=== PATIENT | male | born 1995 | race Caucasian/White ===

== ENCOUNTER 2017-06-09 21:53 | Emergency (ER) | payer MEDICAID ==
--- NOTE | 2017-06-09 22:28 | ED Physician Documentation ---
PD HPI LOWER EXT INJURY - Stated complaint Stated Complaint: R LEG PAIN, R ANKLE INJURY - Chief complaint Chief Complaint: Trauma Ext - History obtained from History obtained from: Patient, Family - History of Present Illness PD HPI LOW EXT INJURY LOCATION: Right, Knee Type of injury: Fall, Twist Where injury occurred: Work Timing - onset: Today Worsened by: Moving, Palpating Associated symptoms: Swelling. No: Weakness Similar symptoms before: Has not had sx before Recently seen: Not recently seen - Additional information Additional information: Patient is a 21 year old male with no significant past medical history who is presenting to the emergency department for ankle pain. patient states that he was walking today when he stepped wrong and twisted his ankle. Patient states that he also has had knee pain for the last couple of weeks and he hit it again today. Review of Systems Constitutional: denies: Fever, Chills Eyes: reports: Reviewed and negative Ears: reports: Reviewed and negative Nose: reports: Reviewed and negative Throat: reports: Reviewed and negative Cardiac: reports: Reviewed and negative Respiratory: reports: Reviewed and negative GI: reports: Reviewed and negative : reports: Reviewed and negative Skin: denies: Lesions, Abrasion (s) Musculoskeletal: reports: Extremity pain, Joint pain, Extremity swelling, Joint swelling Neurologic: denies: Generalized weakness, Focal weakness Immunocompromised: denies: Immunocompromised PD PAST MEDICAL HISTORY - Past Medical History Past Medical History: No - Past Surgical History Past Surgical History: No - Present Medications Home Medications: Ambulatory Orders Medication Instructions Recorded Confirmed No Known Home Medications [No 06/09/17 06/09/17 Known Home Medications] - Allergies Allergies/Adverse Reactions: Allergies Allergy/AdvReac Type Severity Reaction Status Date / Time No Known Drug Allergies Allergy Verified 06/09/17 22:04 - Social History Does the pt smoke?: No Smoking Status: Never smoker Does the pt drink ETOH?: No Does the pt have substance abuse?: No - Immunizations Immunizations are current?: Yes - POLST Patient has POLST: No PD ED PE NORMAL - Vitals Vital signs reviewed: Yes - General General: Alert and oriented X 3, No acute distress - HEENT HEENT: Atraumatic - Cardiac Cardiac: RRR - Respiratory Respiratory: No respiratory distress - Abdomen Abdomen: Non distended - Derm Derm: Normal color, Warm and dry - Neuro Neuro: Alert and oriented X 3, No motor deficit, Normal speech Eye Opening: Spontaneous Motor: Obeys Commands Verbal: Oriented GCS Score: 15 PD ED PE EXPANDED - Extremities Extremities: Right knee (mild swelling and minimal tenderness to palpation, full rom ), Right ankle (tenderness inferior to lateral maleolus), Motor intact , Sensory intact, Vascular intact, Tendon intact Results - Vitals Vitals: Vital Signs - 24 hr 06/09/17 21:55 Temperature 37.0 C Heart Rate 97 Respiratory 16 Rate Blood Pressure 151/96 H O2 Saturation 100 Oxygen O2 Source Room air - Rads (name of study) knee x-ray Radiology: EMP read indepedently (normal) ankle x-ray Radiology: Final report received, EMP read contemporaneously (no acute fracture or dislocation) PD MEDICAL DECISION MAKING - ED course Complexity details: reviewed old records, reviewed results, re-evaluated patient , considered differential, d/w patient ED course: Patient was seen and examined at bedside. Imaging was ordered. when patient returned from imaging he was given ice and ibuprofen. Images were reviewed. there was no acute fracture or dislocation. Patient required no further work up and was stable for discharge with outpatient follow up. Departure - Departure Disposition: 01 Home, Self Care Clinical Impression: Ankle sprain Condition: Good Instructions: ED Sprain Ankle W X Ray Follow-Up: primary,care provider [Other] - As Needed Comments: Your diagnostics today were within normal limits. There is no acute fracture or dislocation. You should take motrin or tylenol as needed for pain and ice your knee and ankle at least 6 times a day. You should follow up with your doctor if your symptoms persist. You may return to the emergency department at any time for new, worsening or uncontrollable symptoms.
[2017-06-09] MEDS ORDERED: IBUPROFEN 600 MG TABLET PO STA (22:37)
--- NOTE | 2017-06-09 22:45 | XRAY Report ---
EXAM: RIGHT KNEE RADIOGRAPHY EXAM DATE: 06/09/2017 10:26 PM. CLINICAL HISTORY: Fall, ankle and knee pain. COMPARISON: None. TECHNIQUE: 2 views. FINDINGS: Bones: No fracture or focal bony lesion. Joints: No evidence of dislocation. Soft Tissues: There is prepatellar soft tissue swelling. IMPRESSION: No evidence of fracture or dislocation. [facility] Referring Provider Line: [phone] SITE ID: [id number]
--- NOTE | 2017-06-09 22:45 | XRAY Report ---
EXAM: RIGHT ANKLE RADIOGRAPHY EXAM DATE: 06/09/2017 10:27 PM. CLINICAL HISTORY: Fall, ankle and knee pain. COMPARISON: None. TECHNIQUE: 3 views. FINDINGS: Bones: No fracture or focal bony lesion. Joints: No evidence of dislocation. Soft Tissues: No unexpected soft tissue findings. IMPRESSION: No evidence of fracture or dislocation. [facility] Referring Provider Line: [phone] SITE ID: [id number]
[2017-06-09 22:54] VITALS: BP 132/72
== END 2017-06-09 22:55 | disposition home or self-care (01) ==
LOC: ED 21:53
DX: S93.401A Sprain of unspecified ligament of right ankle, initial encounter (principal); W01.0XXA Fall on same level from slipping, tripping and stumbling without subsequent striking against object, initial encounter; Y93.01 Activity, walking, marching and hiking; Y99.0 Civilian activity done for income or pay
CPT/HCPCS: 73560; 73610; 99283; A9270

== ENCOUNTER 2017-10-31 22:11 | Emergency (ER) | payer MEDICAID ==
[2017-10-31 22:22] VITALS: BP 147/87
[2017-10-31] MEDS ORDERED: HYDROcod/ACET 5/325 Prepack 4 PO STA (22:22)
[2017-10-31] MEDS ORDERED: HYDROcod/ACETAM 5/325 MG TABLET PO STA (22:22)
--- NOTE | 2017-10-31 22:25 | ED Physician Documentation ---
PD HPI UPPER EXT INJURY - Stated complaint Stated Complaint: L HAND INJURY - Chief complaint Chief Complaint: Ext Problem - History obtained from History obtained from: Patient - History of Present Illness Location: Left (Right-handed gentleman who is up-to-date on his tetanus tripped and fell over his bike. He Skin his knee on the right but that does not hurt and he is walking fine. He does have a lot of pain of the left hand.) Review of Systems Constitutional: denies: Fever, Chills Cardiac: reports: Reviewed and negative Respiratory: reports: Reviewed and negative : reports: Reviewed and negative PD PAST MEDICAL HISTORY - Past Surgical History Past Surgical History: No - Present Medications Home Medications: Ambulatory Orders Medication Instructions Recorded Confirmed HYDROcod/ACETAM 5/325 [[place] 5/325] 1 - 2 ea PO Q6H PRN #15 tablet 10/31/17 - Allergies Allergies/Adverse Reactions: Allergies Allergy/AdvReac Type Severity Reaction Status Date / Time No Known Drug Allergies Allergy Verified 10/31/17 22:20 - Social History Does the pt smoke?: No Smoking Status: Never smoker Does the pt drink ETOH?: No Does the pt have substance abuse?: No - Immunizations Immunizations are current?: Yes - POLST Patient has POLST: No PD ED PE NORMAL - Vitals Vital signs reviewed: Yes - General General: Alert and oriented X 3, No acute distress - Neck Neck: Supple, no meningeal sign, No bony TTP - Extremities Extremities: Other (There is a abrasion over the right knee, but absolutely no tenderness or limited range of motion he is walking okay. There is swelling over the fifth metacarpal of the left hand and abrasions on the PIPs of the third and fourth fingers. These are more shallow broad abrasions, they are not consistent with fight bites. He cannot make a fist.) - Neuro Neuro: Alert and oriented X 3, Normal speech Results - Vitals Vitals: Vital Signs - 24 hr 10/31/17 22:17 Temperature 36.9 C Heart Rate 101 H Respiratory 17 Rate Blood Pressure 147/87 H O2 Saturation 99 Oxygen O2 Source Room air - Rads (name of study) 3v L hand Radiology: EMP read contemporaneously (oblique frx 3rd,4th,5th MCs) Procedures - Splint (location) L hand Splint applied by: Physician Type of splint: Fiberglass, Short arm, Ulnar gutter Other: Patient tolerated well, No complications, Neurovascular intact PD MEDICAL DECISION MAKING - Sepsis Event Vital Signs: Vital Signs - 24 hr 10/31/17 22:17 Temperature 36.9 C Heart Rate 101 H Respiratory 17 Rate Blood Pressure 147/87 H O2 Saturation 99 Oxygen O2 Source Room air Departure - Departure Disposition: 01 Home, Self Care Clinical Impression: Fracture of third metacarpal bone of left hand Qualifiers: Encounter type: initial encounter Fracture type: closed Metacarpal location: shaft Fracture alignment: nondisplaced Qualified Code(s): S62.353A - Nondisplaced fracture of shaft of third metacarpal bone, left hand, initial encounter for closed fracture Fracture of fourth metacarpal bone Qualifiers: Encounter type: initial encounter Fracture type: closed Metacarpal location: shaft Fracture alignment: displaced Laterality: left Qualified Code(s): S62.325A - Displaced fracture of shaft of fourth metacarpal bone, left hand, initial encounter for closed fracture Fracture of fifth metacarpal bone of left hand Qualifiers: Encounter type: initial encounter Fracture type: closed Metacarpal location: shaft Fracture alignment: displaced Qualified Code(s): S62.327A - Displaced fracture of shaft of fifth metacarpal bone, left hand, initial encounter for closed fracture Condition: Good Record reviewed to determine appropriate education?: Yes Instructions: ED Fx Hand Closed Follow-Up: [facility] [Provider Group] - Within 1 week Prescriptions: HYDROcod/ACETAM 5/325 [[place] 5/325] 1 - 2 ea PO Q6H PRN #15 tablet PRN Reason: Pain Comments: Your blood pressure was elevated today on check into the emergency department. This does not mean that you have hypertension, it is a common phenomenon to come to the emergency department and have elevated blood pressure. I recommend that you see your primary care physician within the week to have it rechecked when you are feeling better. Do not drink or drive while taking narcotic pain medication. Note that many narcotic pain relievers also contain Tylenol/acetaminophen. Please ensure that your total dose of acetaminophen from all sources does not exceed 3 g (3000 mg) per day. You may get constipated while on this medication. Take a stool softener such as Colace twice a day while you are on it. Also add an [id number] laxative such as senna or MiraLAX on any day that you do not have a bowel movement. If you received a narcotic pain medication or sedative while in the emergency department, do not drive for the next 24 hours.
--- NOTE | 2017-10-31 22:44 | XRAY Report ---
Procedure Date: 10/31/2017 Accession Number: [id number] / [id number] Procedure: XR - Hand 3 View LT CPT Code: FULL RESULT: EXAM: LEFT HAND RADIOGRAPHY EXAM DATE: 10/31/2017 10:32 PM. CLINICAL HISTORY: Pain COMPARISON: None. TECHNIQUE: 3 views. FINDINGS: Bones: There are obliquely oriented fractures through the third, fourth, fifth metacarpals. Joints: No evidence of dislocation. Soft Tissues: No unexpected soft tissue findings. IMPRESSION: There are mildly displaced, obliquely oriented fractures through the third, fourth, and fifth metacarpals. No evidence of dislocation. [facility]
== END 2017-10-31 23:00 | disposition home or self-care (01) ==
LOC: ED 22:11
DX: S62.353A Nondisplaced fracture of shaft of third metacarpal bone, left hand, initial encounter for closed fracture (principal); S62.325A Displaced fracture of shaft of fourth metacarpal bone, left hand, initial encounter for closed fracture; S62.327A Displaced fracture of shaft of fifth metacarpal bone, left hand, initial encounter for closed fracture; S80.211A Abrasion, right knee, initial encounter; W18.09XA Striking against other object with subsequent fall, initial encounter; R03.0 Elevated blood-pressure reading, without diagnosis of hypertension
CPT/HCPCS: 29125; 73130; 99283; A9270

== ENCOUNTER 2018-02-10 23:17 | Emergency (ER) | payer MEDICAID ==
[2018-02-11] MEDS ORDERED: AMOX/CLAV 875 MG/125 MG TABLET PO STA (00:23)
[2018-02-11] MEDS ORDERED: DEXAMETHASONE 10 MG/ML VIAL PO STA (00:23)
--- NOTE | 2018-02-11 00:26 | ED Physician Documentation ---
PD HPI HEENT - Stated complaint Stated Complaint: EAR PX,COUGH - Chief complaint Chief Complaint: Heent - History obtained from History obtained from: Patient, Family - History of Present Illness Timing - onset: How many weeks ago (1) Timing - duration: Weeks (1) Timing - details: Gradual onset, Still present Location: Right ear, Left ear, Throat Improves: Medication Worsens: Swalllowing, Noise, Position Associated symptoms: Congestion, Rhinorrhea, Cough Similar symptoms before: Has not had sx before Recently seen: Not recently seen - Additional information Additional information: Previously well 22-year-old male has developed nasal congestion about 1 week ago he subsequently has developed a cough and congestion and he developed right ear pain about 3 days ago when today's developed severe left ear pain. He has not had these symptoms previously. Review of Systems Constitutional: reports: Myalgias, Fatigue. denies: Fever Eyes: denies: Decreased vision Ears: reports: Ear pain Nose: reports: Rhinorrhea / runny nose, Congestion Throat: reports: Sore throat Cardiac: denies: Chest pain / pressure, Palpitations Respiratory: reports: Cough. denies: Dyspnea GI: denies: Abdominal Pain, Nausea, Vomiting : denies: Dysuria, Frequency PD PAST MEDICAL HISTORY - Past Medical History Past Medical History: No - Past Surgical History Past Surgical History: Yes Ortho: Other - Present Medications Home Medications: Ambulatory Orders Medication Instructions Recorded Confirmed RX: HYDROcod/ACETAM 5/325 [[place] 1 - 2 ea PO Q6H PRN #15 tablet 10/31/17 5/325] Amox/Clav 875/125 [Augmentin] 1 each PO Q12H #20 tablet 02/11/18 - Allergies Allergies/Adverse Reactions: Allergies Allergy/AdvReac Type Severity Reaction Status Date / Time No Known Drug Allergies Allergy Verified 02/10/18 23:23 - Social History Does the pt smoke?: Yes Smoking Status: Current every day smoker Does the pt drink ETOH?: Yes Does the pt have substance abuse?: No Substance Use and Type: Marijuana - Immunizations Immunizations are current?: Yes - POLST Patient has POLST: No PD ED PE NORMAL - Vitals Vital signs reviewed: Yes (tachy and hypertensive ) - General General: Alert and oriented X 3, No acute distress, Well developed/nourished - HEENT HEENT: Atraumatic, PERRL, EOMI, Pharynx benign, Other (The right TM is markedly inflamed centrally and the left is inflamed with distortion of the landmarks. It looks like it would hurt. 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, No motor deficit, No sensory deficit, Normal speech Eye Opening: Spontaneous Motor: Obeys Commands Verbal: Oriented GCS Score: 15 - Psych Psych: Normal mood, Normal affect Results - Vitals Vitals: Vital Signs - 24 hr 02/10/18 02/11/18 23:21 00:50 Temperature 37.3 C 36.9 C Heart Rate 113 H 70 Respiratory 17 12 Rate Blood Pressure 146/78 H 138/80 H O2 Saturation 100 95 Oxygen O2 Source Room air PD MEDICAL DECISION MAKING - ED course Complexity details: considered differential, d/w patient, d/w family ED course: 22-year-old male with bilateral otitis is administered Dexamethasone 10 mg orally we will place him on some Augmentin. Departure - Departure Disposition: 01 Home, Self Care Clinical Impression: Otitis media Condition: Stable Instructions: ED Otitis Media Acute Adult Follow-Up: [facility] [Provider Group] Prescriptions: Amox/Clav 875/125 [Augmentin] 1 each PO Q12H #20 tablet Discharge Date/Time: 02/11/18 00:52
[2018-02-11 00:51] VITALS: BP 138/80
== END 2018-02-11 00:52 | disposition home or self-care (01) ==
LOC: ED 23:17
DX: H66.93 Otitis media, unspecified, bilateral (principal); F17.200 Nicotine dependence, unspecified, uncomplicated
CPT/HCPCS: 99283; A9270